=== PATIENT | female | born 1985 | race African-American/Black ===

== ENCOUNTER 2019-12-30 07:55 | Outpatient (CLI) | payer OTHER ==
[2019-12-30 09:09] VITALS: BP 112/72
--- NOTE | 2019-12-30 09:09 | SLEEP CARE CONSULTATION ---
Information from patient questionnaire entered by Peace Odell. I have reviewed and concur with the information entered by Peace Odell. This document represents the service I personally performed and the decisions made by me, Isabel Rudolph ARNP. History of Present Illness Service Date and Time: 12/30/2019 0755 Reason for Visit: New patient Chief Complaint: reports: Insomnia (can't get to sleep or stay sleep), Unrefreshed sleep, Snoring, Excessive daytime sleepiness, Observed pauses in breathing, Fatigue, Other (obstructed sleep patterns). denies: Frequent awakenings at night Date of Onset: 4-5 years Usual bedtime: 2200 Time it takes to fall asleep: 3 hours Snores at night: Yes Observed to quit breathing while asleep: Yes Sleeps alone due to snoring: No Number of times waking at night: 2-3 Reasons for waking at night: reports: Snoring, Gasping for air, Other (night terrors recently). denies: Choking, Pain, Bathroom Toss, Turn, or Twitch while sleeping: Yes Recalls having dreams: Yes Usually gets out of bed at: 0700 Feels refreshed in the morning: No Morning headache: Yes (daily, last about an hour without meds) Sleepy or fatigued during the day: Yes Ever fallen asleep while driving: Yes (drowsy driving, dozed off couple of times) Takes day naps: No Dreams during day naps: No Prior sleep studies: Yes Year and Where: [facility], [place] 2016; found to have insomnia Additional HPI information: I had the pleasure of seeing ERIC NAVARRETE today regarding the possibility of her having a sleep disorder. Her current complaints are insomnia, unrefreshed sleep, snoring, daily headaches, pauses in breathing during sleep, fatigue, and excessive daytime sleepiness. Patient has had previous HST and PSG test in 2016 in [place] which she states showed that she has insomnia. She has a history of not being able to get to sleep until 5-6 in the morning. About 3 weeks ago she started taking Mirtazepine which helps her get to sleep by about 1 AM. She feels her snoring and unrefreshed sleep is getting worse. She has gained weight, about 20 pounds, but she also states her weight has fluctuated. She states her mother is on CPAP therapy and her siblings all snore. - Parasomnia Symptoms Ever been unable to move upon waking from sleep: No Walks in sleep: No Talks in sleep: Yes Ever acted out dreams in sleep: Yes Ever felt weak in the knees when startled or emotional: No Bothered by creepy, crawly, restless sensations in legs: No Problems with memory or concentration: Yes (daily difficulty) Subjective Initial [place] Sleepiness Scale score: 1 Past Medical History Past Medical History: reports: Arthritis, Anxiety, Depression, GERD, Other (IBS, hip arthroscopy (bilateral), headaches). denies: Hypertension, Claustrophobia, Congestive Heart Failure, Diabetes, Stroke, Coronary Heart Disease, Insulin resistance, Arrythmia, Hypothyroidism, Anemia, Mood disorder Social History The patient's occupation is active . Patient is and lives in [place]. Have you smoked in the past 12 months: No Years of smokin Quit date: 2014 Alcohol use: No Caffeine use: No Family History Family history of sleep disordered breathing: No Family Hx Sleep Apnea: Mother: Snoring, Sleep apnea - Treated, Sibling: Snoring Allergies and Home Medications Drug allergies reviewed: Yes (NKDA) Home medication list reviewed: Yes Allergy and home medication list: Cymbalta 40 mg daily Mirtazapine 15 mg, nightly; last 3 weeks Review of Systems Weight gain over past 5 years: 20 Weight loss over past 5 years: 10 Cardiovascular: denies: high blood pressure, palpitations, chest pain, irregular heart rate or pulse, leg or foot swelling Respiratory: reports: wheeze. denies: shortness of breath, chronic cough Gastrointestinal: reports: heartburn, difficulty swallowing (has to prepare herself to swallow), abdominal pain Urinary: reports: urgency Neurological: reports: headaches, seizure, disorientation Psychiatric: reports: anxiety, depression. denies: mood disorder, claustrophobia Ear/Nose/Throat: reports: sinus problems (sinus infections several time), dry mouth/throat (daily, mornings mostly), injury to nose (nose fracture 2004), wisdom teeth removed. denies: nasal congestion, nose bleeds, hoarseness, tonsillectomy Endocrine: reports: excessive thirst, increased urination. denies: thyroid disease Musculoskeletal: reports: joint pain, neck pain, back pain Immunologic: denies: allergies to food or environment Physical Exam Blood Pressure: 112/72 Cuff size: regular Heart Rate: 84 O2 Saturation: 99 Height: 5 ft 10 in Weight: 187 lb 6.4 oz Body Mass Index: 26.9 BMI Classification: Overweight HEENT: No craniofacial malformation Nostrils: patent to airflow Turbinates: swollen Septum: midline Mouth and throat: narrow oropharynx Soft palate: normal Hard palate: arched Uvula: normal Uvula visualization: 25% Mallampati Class III Tongue: normal in size Tonsils: small Chin and jaw: normal size and position Neck: normal w/o lymphadenopathy or thyromegaly Heart: regular rate and rhythm Lungs: clear bilaterally Impression and Plan 1. Suspected Obstructive Sleep Apnea-Hypopnea Syndrome, as suggested by a history of loud and irregular snoring, observed cessation of breath while asleep, gasping or choking in sleep, morning headache, frequent awakening during the night, unrefreshed sleep, cognitive impairment, and excessive daytime sleepiness. She has had a previous study that she states showed insomnia but she feels her sleepiness, unrefreshed sleep, fatigue and insomnia are worse than when previously tested. I requested records from previous studies for comparison. I recommend proceeding to polysomnography to confirm the diagnosis and to assess severity. If the patient has significant sleep disordered breathing, a manual CPAP titration study will also be performed to find the optimal treatment pressure. Narrow oropharynx and obesity are common predisposing factors for obstructive sleep apnea-hypopnea syndrome. I informed the patient of what the sleep studies involve and after some discussion, obtained agreement to proceed. The pathophysiology of obstructive sleep apnea- hypopnea syndrome was discussed with the patient and health risks of cardiovascular and cerebrovascular disease if not treated. AAS brochure for obstructive sleep apnea-hypopnea syndrome given and reviewed. Risks of drowsy driving discussed in detail and patient advised to avoid long distance driving and to order puller at the first sign of drowsiness. Patient agreed to plan. AAS drowsy driving brochure given. * Schedule polysomnography +- manual CPAP titration study. * Obtain records from previous studies and bring to our office. * Avoid long distance driving or driving when feeling sleepy. * Avoid sedative and muscle relaxant around bedtime. * Attempt to lose weight. * Review instructions provided by trained office staff on how to prepare for the sleep study. * Return for follow-up after sleep study completed. Visit Type: In Office Time Spent with Patient (minutes): 30 Provider Statement: I spent 100% of the Face to Face Visit with the patient with greater than 50% spent counseling the patient and coordination of care.
== END 2019-12-30 07:56 | disposition home or self-care (01) ==
LOC: SC 07:55
PROVIDERS: ATTEND Nurse Practitioner Family
DX: R06.83 Snoring (principal); G47.10 Hypersomnia, unspecified; G47.8 Other sleep disorders; R06.81 Apnea, not elsewhere classified; F32.9 Major depressive disorder, single episode, unspecified; E66.3 Overweight; Z68.26 Body mass index [BMI] 26.0-26.9, adult
CPT/HCPCS: 99204; 99212

== ENCOUNTER 2020-01-20 19:33 | Outpatient (CLI) | payer OTHER | END 2020-01-20 19:34 | disposition home or self-care (01) | LOC: SC 19:33 | PROVIDERS: ATTEND Nurse Practitioner Family | DX: R06.83 Snoring (principal); G47.10 Hypersomnia, unspecified; G47.8 Other sleep disorders; R06.81 Apnea, not elsewhere classified; E66.3 Overweight; Z68.26 Body mass index [BMI] 26.0-26.9, adult | CPT/HCPCS: 95810 ==

== ENCOUNTER 2020-02-03 09:44 | Outpatient (CLI) | payer OTHER ==
--- NOTE | 2020-02-03 10:31 | SLEEP CARE CONSULTATION ---
Information from patient questionnaire entered by Kelly Gil. I have reviewed and concur with the information entered by Kelly Gil. This document represents the service I personally performed and the decisions made by , Isabel Rudolph ARNP. History of Present Illness Service Date and Time: 02/03/2020 0944 Initial [place] Sleepiness Scale score: 1 (in 2019) Current [place] Sleepiness Scale score: 10 Additional HPI information: ERIC NAVARRETE returns for follow up and results of the recently performed polysomnography. The patient was informed of the following findings: No significant sleep disordered breathing with an average AHI I explained the pathophysiology behind obstructive sleep apnea. Patient does not have sleep apnea and was advised how weight gain could increase the risk of developing sleep apnea in the future. Patient has moderate to loud snoring. Snoring can be reduced by weight loss. Weight loss is best achieved with diet consult. Patient instructed to contact PCP for referral. Snoring can also be treated with an oral appliance from a dentist. Advised to check insurance coverage. In addition, an ENT evaluation can be do to see if other treatment is indicated. Patient counseled not drink alcohol less than 4 hours before bedtime as it can increase snoring and apnea. Patient was cautioned about risks of drowsy driving until sleepiness symptoms resolve. Sleep Study - Results Type of Sleep Study: Polysomnography Polysomnography/Home Sleep Study results: IMPRESSION: The quality of the study is good. The patient had normal sleep efficiency. The sleep architecture was normal as well. Respiratory monitoring showed no significant sleep disordered breathing (AHI = 0.1) no significant hypoxia (tiara oxygen saturation of 94%). The patient slept adequately in supine position (supine AHI = 0.0; non-supine = 0.30). Snore was light to loud in intensity. There was no significant periodic leg movement of sleep. Cardiac rhythm was normal sinus rhythm without significant arrhythmia. No abnormal behavior (parasomnia) observed during the night. Allergies and Home Medications Drug allergies reviewed: Yes (NKDA) Home medication list reviewed: Yes (prazosin for depression added) Review of Systems Review of systems same as previous: Yes (no changes) Physical Exam Heart Rate: 79 O2 Saturation: 99 Height: 5 ft 10 in Weight: 197 lb Body Mass Index: 28.3 BMI Classification: Overweight Impression and Plan 1. Snoring but no significant sleep disordered breathing. Patient advised that often weight loss will reduce snoring as well as apnea risk. An oral appliance can also be used for snoring. This would require a dental consultation. Patient cautioned not to use other online appliances as can cause bite issues. A list of accredited dentists in area and one local dentist who makes oral appliances given. Patient is advised to check if insurance will cover. An ENT consult can also be helpful to determine if any other treatment is an option. 2. Insomnia, unspecified. Insomnia is generally caused by an irregular sleep schedule, spending too much time in bed, napping, caffiene, electronics, lack of a relaxing bedtime ritual and clock watching. Other factors can include anxiety/depression, pain, medications, and obstructive sleep apnea. Patient also has history of depression for which she is being treated with mirtazepine at bedtime and prazosin which may be contributing to her insomnia. She states she wakes up normally at 7 AM, even on the weekends. She has difficulty getting to sleep before 1 AM. I advised her to lay down to sleep around midnight instead of 2200. I counseled the patient on the importance of a regular sleep schedule, starting with the wake time. I explained the homestatic sleep drive and how maintaining a regular wake time will allow the patient to be tired enough to sleep 15-16 hours later. By waking at the same time, the patient will also feel more alert. This can also be assisted by exposure to bright light for a minimum of 15 minutes a day upon waking. Additionally too much time spent in bed can cause more sleep disruption as most people only need 7-9 hours of sleep. Thus patient advised to restrict time in bed to 7-8 hours. Naps are to be avoided unless overcome by sleepiness. Then naps are to be restricted to one hour and before 3 pm so as not to interfere with nighttime sleep. Most caffeine is to be stopped after lunch as it has a 6 hour half life and reduce sleep latency and efficiency. In addition, it is important to have a relaxing ritual about 30-60 minutes before bedtime to allow the mind/body transition from an active day to sleep. Electronics should be avoided 1-2 hours before bedtime as the bright light can reduce the endogenous melatonin and the activity of the computer, tablet, cell phone etc can be alerting. TV is okay but content needs to be relaxing and the brightness dimmed. A warm bath or shower is another way to assist transition to sleep. In addition, it is important to have a sleep environment conducive to sleep such as a comfortable bed, comfortable temperature and quiet. The alarm clock should be set and the face covered to prevent clock watching if awakened during the night. Knowing the time can cause anxiety and increase alertness and thinking about sleep time and preparation for the next day. Instead if awakened after sleep, the patient is to position for comfort or use bathroom and return to sleep. If unable to go to sleep in an estimated 20 minutes of more, it is advised to leave the bedroom and engage in a quiet activity until sleepy enough to return to bed. If unable to sleep due to things on the mind, it is recommended to write out the concerns or list to do as a release then return to a quiet activity until sleepy enough to return to bed. This is to be repeated as often as necessary to associate the bed with sleep and not frustration to get to sleep. AASM How to Sleep Better pamphlet given and reviewed at last visit. A sleep diary will be completed for the next 2 weeks to assist implementation of recommendations and for further evaluation of sleep concerns. * Keep a sleep diary for at least 2 weeks * Attempt to lose weight * Avoid alcohol consumption near bedtime * The patient is cautioned about driving until sleepiness is completely resolved. * Return in 1-2 months for follow up. Visit Type: In Office Location of Provider: Office Time Spent with Patient (minutes): 20 Provider Statement: I spent 100% of the Face to Face Visit with the patient with greater than 50% spent counseling the patient and coordination of care.
== END 2020-02-03 09:45 | disposition home or self-care (01) ==
LOC: SC 09:44
PROVIDERS: ATTEND Nurse Practitioner Family
DX: R06.83 Snoring (principal); G47.00 Insomnia, unspecified; E66.3 Overweight; Z68.28 Body mass index [BMI] 28.0-28.9, adult
CPT/HCPCS: 99212; 99213

== ENCOUNTER 2020-02-13 08:59 | Day surgery (SDC) | payer OTHER ==
[2020-02-13] MEDS ORDERED: LACTATED RINGERS 1,000 ML IV ONE ×2 (09:07→11:47)
--- NOTE | 2020-02-13 09:52 | ANESTHESIA ---
Pre-Anesthesia VS, & Labs - Diagnosis Endometrial Polyp - Procedure Myosure Hysteroscopy Vital Signs: Temp Pulse Resp BP Pulse Ox 36.1 C L 62 20 121/62 99 02/13/20 09:27 02/13/20 09:27 02/13/20 09:27 02/13/20 09:27 02/13/20 09:27 Height: 5 ft 8 in Weight (kg): 89 kg Body Mass Index: 29.8 BMI Classification: Overweight - NPO >8 hours - Is Patient ?: No Home Medications and Allergies Duloxetine HCl 40 mg PO BID 01/27/20 Ibuprofen [Motrin] 600 mg PO Q6H PRN 01/27/20 Mirtazapine 30 mg PO DAILY PM 01/27/20 Norethindrone AC-Eth Estradiol [Loestrin 21 1.5-30 Tablet] 1 each PO 01/27/20 Omeprazole Magnesium [Prilosec] 10 mg PO 01/27/20 Prazosin [Minipress] 2 mg PO QPM 01/27/20 Allergies/Adverse Reactions: Allergies Allergy/AdvReac Type Severity Reaction Status Date / Time No Known Drug Allergies Allergy Verified 01/27/20 14:09 Anes History & Medical History - Anesthetic History Anesthesia Complications: reports: No previous complications Family history of Anesthesia Complications: Denies Family history of Malignant Hyperthermia: Denies - Medical History Cardiovascular: reports: None Pulmonary: reports: None, Sleep apnea (Snores and will wake up choking. had sleep study, awaiting results) Gastrointestinal: reports: None, GERD (Controlled with prilosec) Urinary: reports: None Neuro: reports: Seizure disorder (Diagnosed as convulsive disorder with seizures. last one Mar 25. no meds. Last about 5 min.) Musculoskeletal: reports: None Endocrine/Autoimmune: reports: None Blood Disorders: reports: None Skin: reports: None - Surgical History General: Colonoscopy Orthopedic: Hip replacement Exam General: Alert, Oriented x3, Cooperative, No acute distress Dental: WNL Mouth Opening: Greater than 4 Fingerbreadths Neck Mobility: Normal Mallampati classification: I Thyromental Distance: 4-6 cm Respiratory: Lungs clear Cardiovascular: Regular rate Mental/Cognitive Status: Alert/Oriented X3 Plan Anesthesia Type: General Consent for Procedure(s) Verified and Reviewed: Yes Code Status: Attempt Resuscitation ASA classification: 2-Mild systemic disease Is this case an emergency?: No (Discussed anesthesia and risks. Consent signed.)
[2020-02-13 10:01] LABS: HCG UR QUAL NEGATIVE
[2020-02-13] MEDS ORDERED: HYDROmorphone 0.5 MG/0.5 ML SYRINGE IVP PRN (10:07)
[2020-02-13] MEDS ORDERED: ACETAMINOPHEN 1,000 MG/100 ML 100 ML IV ONE (10:07)
[2020-02-13] MEDS ORDERED: METOCLOPRAMIDE 10 MG/2 ML VIAL IVP PRN (10:07)
[2020-02-13] MEDS ORDERED: MORPHINE 2 MG/ML CARPUJECT IVP PRN (10:07)
[2020-02-13] MEDS ORDERED: NALOXONE 0.4 MG/ML VIAL IVP PRN (10:07)
[2020-02-13] MEDS ORDERED: ONDANSETRON 4 MG/2 ML VIAL IVP PRN (10:07)
[2020-02-13] MEDS ORDERED: ATROPINE ABBOJECT 1 MG/10 ML SYRINGE IVP PRN (10:07)
[2020-02-13] MEDS ORDERED: fentaNYL 100 MCG/2 ML VIAL IVP PRN (10:07)
[2020-02-13] MEDS ORDERED: ePHEDrine 50 MG/ML VIAL IVP PRN (10:07)
[2020-02-13] MEDS ORDERED: PROPOFOL 200 MG/20 ML VIAL IVP ONE (10:50)
[2020-02-13] MEDS ORDERED: MIDAZOLAM 2 MG/2 ML VIAL IVP ONE (10:50)
[2020-02-13] MEDS ORDERED: fentaNYL 100 MCG/2 ML VIAL IVP ONE (10:50)
[2020-02-13] MEDS ORDERED: LACTATED RINGERS 1,000 ML IV SCH (11:00)
[2020-02-13] MEDS ORDERED: LIDOCAINE 1% 50 ML MDV SUBQ ONE (11:37)
[2020-02-13] MEDS ORDERED: SILVER NITRATE APPLICATOR TOP ONE ×2 (11:38→12:43)
--- NOTE | 2020-02-13 11:50 | OPERATIVE REPORT ---
Operative Report - General Procedure Date: 02/13/20 Planned Procedure: Hysteroscopy with MyoSure Pre-Op Diagnosis: Endometrial polyp Procedure Performed: Same as above Post Op Diagnosis: Same as above - Procedure Note Primary Surgeon: Marcelina Anesthesia Provider: Herbert Anesthesia Technique: General LMA, Regional block Pathology: Endometrial polyp IV Fluids (mL): 1,000 Estimated Blood Loss (mL): 10 Indications: Endometrial polyp Findings: Exam under anesthesia The uterus was of normal size shape and consistency. The adnexa were benign. Operative findings The uterus sounded to 8 cm. The endometrium appeared thin and there was a small polyp on the posterior wall. Complications: None - Other Other Information/Narrative: The patient was taken to the operating room, where general anesthesia with LMA was administered without difficulty. She was then positioned in the high dorsal lithotomy position with her lower extremities in [place] stirrups. Exam under anesthesia was then performed with the findings as noted above. Vagina and perineum were then prepped and draped in a sterile fashion. Procedure Time- Out was then performed. A sterile bivalved speculum was then placed into the vagina, and the anterior lip of the cervix was grasped with a single-tooth tenaculum. 1% lidocaine was then injected at the 2:00, 4:00, 7:00, and 10:00 positions for a paracervical block. Serial dilation using Hegar dilators was then performed until the Myosure hysteroscope could be advanced. Using saline for distension, the cavity was visualized with the findings as note above. Myosure was used to perform a gentle curettage. The tenaculum was removed, and the tenaculum sites were made hemostatic with silver nitrate. The speculum was then removed from the vagina. At this point, the procedure was deemed completed. Sponge, lap, and needle count were correct x 3, and there were no complications. The patient was awakened, replaced supine, and transferred to the PACU in stable condition.
--- NOTE | 2020-02-13 12:13 | ANESTHESIA POST OP EVALUATION ---
Anesthesia Post Eval - Post Anesthesia Eval Vitals: Last Vital Signs Temp 36.5 C 02/13/20 12:02 Pulse 80 02/13/20 12:02 Resp 12 02/13/20 12:02 BP 121/80 02/13/20 12:02 Pulse Ox 100 02/13/20 12:02 CV Function Including HR & BP: positive: Stable Pain Control: positive: Satisfactory (Very mild cramping) Nausea & Vomiting: positive: Negative (Taking PO food and fluids) Mental Status: positive: Baseline Respiratory Status: Airway Patent Hydration Status: Satisfactory Anesthesia Complications: positive: None (awake and alert)
[2020-02-13 13:05] VITALS: BP 109/76
== END 2020-02-13 09:00 | disposition home or self-care (01) ==
LOC: SDS 08:59
PROVIDERS: ATTEND Obstetrics & Gynecology
PROC: 0UDB8ZZ Extraction of Endometrium, Via Natural or Artificial Opening Endoscopic (ICD-10-PCS; principal; 2020-02-13 10:15)
DX: N84.0 Polyp of corpus uteri (principal); N94.6 Dysmenorrhea, unspecified; F17.290 Nicotine dependence, other tobacco product, uncomplicated; G47.30 Sleep apnea, unspecified
CPT/HCPCS: 81025

== ENCOUNTER 2020-03-05 09:36 | Outpatient (CLI) | payer OTHER ==
--- NOTE | 2020-03-05 10:28 | SLEEP CARE CONSULTATION ---
Information from patient questionnaire entered by Kelly Gil. I have reviewed and concur with the information entered by Kelly Gil. This document represents the service I personally performed and the decisions made by me, Isabel Rudolph ARNP. History of Present Illness Service Date and Time: 03/05/2020 0936 Reason for follow up: one month (with sleep diaries) Prior sleep studies: Yes Year and Where: 2016 - [place], [place] (insomnia), 2019 - [facility] Type of Sleep Study: Polysomnography HPI additional information: I had the pleasure of seeing ERIC NAVARRETE today for follow up of her insomnia complaint. She takes 20 minutes to 1.5 hours to go to sleep. She gets out of bed between 0530 to 1000 in the morning and goes to bed between 0030 and 0200 AM. She feels better when she has about 6 hours of sleep than if she sleeps more than 8 hours. She does not take naps. She is just going back to work and will have a more consistent get up time now. She is taking mirtazepine 3 mg nightly to help her sleep. Subjective Initial [place] Sleepiness Scale score: 1 (in 2019) Allergies and Home Medications Drug allergies reviewed: Yes (NKDA) Home medication list reviewed: Yes Allergy and home medication list: Linzess 145 mg daily for IBS Prazosin 2 mg daily for nightmares Review of Systems Review of systems same as previous: No (hysteroscopy 2 weeks ago) Physical Exam Heart Rate: 84 O2 Saturation: 98 Height: 5 ft 10 in Weight: 196 lb Body Mass Index: 28.1 BMI Classification: Overweight Impression and Plan 1. Insomnia, unspecified. Insomnia is generally caused by an irregular sleep schedule, spending too much time in bed, napping, caffiene, electronics, lack of a relaxing bedtime ritual and clock watching. Other factors can include anxiety/depression, pain, medications, and obstructive sleep apnea. First I counseled the patient on the importance of a regular sleep schedule, starting with the wake time. I explained the homestatic sleep drive and how maintaining a regular wake time will allow the patient to be tired enough to sleep 15-16 hours later. By waking at the same time, the patient will also feel more alert. This can also be assisted by exposure to bright light for a minimum of 15 minutes a day upon waking. Additionally too much time spent in bed can cause more sleep disruption as most people only need 7-9 hours of sleep. Thus patient advised to restrict time in bed to 7-8 hours. Naps are to be avoided unless overcome by sleepiness. Then naps are to be restricted to one hour and before 3 pm so as not to interfere with nighttime sleep. Most caffeine is to be stopped after lunch as it has a 6 hour half life and reduce sleep latency and efficiency. In addition, it is important to have a relaxing ritual about 30-60 minutes before bedtime to allow the mind/body transition from an active day to sleep. Electronics should be avoided 1-2 hours before bedtime as the bright light can reduce the endogenous melatonin and the activity of the computer, tablet, cell phone etc can be alerting. TV is okay but content needs to be relaxing and the brightness dimmed. A warm bath or shower is another way to assist transition to sleep. In addition, it is important to have a sleep environment conducive to sleep such as a comfortable bed, comfortable temperature and quiet. The alarm clock should be set and the face covered to prevent clock watching if awakened during the night. Knowing the time can cause anxiety and increase alertness and thinking about sleep time and preparation for the next day. Instead if awakened after sleep, the patient is to position for comfort or use bathroom and return to sleep. If unable to go to sleep in an estimated 20 minutes of more, it is advised to leave the bedroom and engage in a quiet activity until sleepy enough to return to bed. If unable to sleep due to things on the mind, it is recommended to write out the concerns or list to do as a release then return to a quiet activity until sleepy enough to return to bed. This is to be repeated as often as necessary to associate the bed with sleep and not frustration to get to sleep. A sleep diary will be completed for the next 2 weeks to assist implementation of recommendations and for further evaluation of sleep concerns. * Get up at same time every morning, no more than an hour difference * Work on nightly routine to encourage sleepiness for bedtime * Do not stay in bed if not sleepy, return when sleepy * Avoid caffeine after lunch or nicotine before bedtime. * Return in 3 months for follow up. Visit Type: In Office Time Spent with Patient (minutes): 22 Provider Statement: I spent 100% of the Face to Face Visit with the patient with greater than 50% spent counseling the patient and coordination of care.
== END 2020-03-05 09:37 | disposition home or self-care (01) ==
LOC: SC 09:36
PROVIDERS: ATTEND Nurse Practitioner Family
DX: G47.00 Insomnia, unspecified (principal)
CPT/HCPCS: 99212

== ENCOUNTER 2020-06-01 09:46 | Outpatient (CLI) | payer OTHER ==
--- NOTE | 2020-06-01 10:24 | SLEEP CARE CONSULTATION ---
Information from patient questionnaire entered by Kelly Gil. I have reviewed and concur with the information entered by Kelly Gil. This document represents the service I personally performed and the decisions made by me, Isabel Rudolph ARNP. History of Present Illness Service Date and Time: 06/01/2020 0946 Reason for follow up: three month, other (insomnia) Prior sleep studies: Yes Year and Where: 2015 - [place], [place] (insomnia), 2019 - [facility] Type of Sleep Study: Polysomnography HPI additional information: BAMBI NAVARRETE with insomnia returned today for 3 month follow-up. She has been getting up at 0730 in the morning on days she works, about 9 am on days she is off. She normally goes to bed about 1130 PM. She is getting about 7 hours in bed. She is still waking up about 3 times a night on average. She fees this is due to stress and anxiety about finances, etc. She does feel she is getting tired enough to fall asleep quickly when she goes to bed now since she has been working again and getting up at the same time every morning. She does wake up and have worries that cause her to ruminate on ideas during the night a few times still. But, overall she feels she is sleeping better than when she first came to this office. Subjective Initial [place] Sleepiness Scale score: 1 (in 2019) Current [place] Sleepiness Scale score: 12 Allergies and Home Medications Drug allergies reviewed: Yes (NKDA) Home medication list reviewed: Yes (no changes) Review of Systems Review of systems same as previous: Yes (no changes) Physical Exam Heart Rate: 91 O2 Saturation: 98 Height: 5 ft 8 in Weight: 195 lb Body Mass Index: 29.6 BMI Classification: Overweight Impression and Plan 1. Insomnia, unspecified. Insomnia is generally caused by an irregular sleep schedule, spending too much time in bed, napping, caffiene, electronics, lack of a relaxing bedtime ritual and clock watching. Other factors can include anxiety/depression, pain, medications, and obstructive sleep apnea. Bambi has been trying to keep to a regular get up time on work days with only sleeping in to 9 AM on the weekends. She is able to fall asleep more quickly with the consistent get up time. She has stopped looking at her phone at night 2 hours prior to bedtime because this would cause her to stay up longer. She is now consistently going to sleep about 1130 PM. I told her this was a good change because electronics should be avoided 1-2 hours before bedtime as the bright light can reduce the endogenous melatonin and the activity of the computer, tablet, cell phone etc can be alerting. TV is okay but content needs to be relaxing and the brightness dimmed. For her stress/anxiety that is interrupting her sleep I advised her to set aside a 30 minute time period that she can focus on her stressors and write them down which can signal to her subconscious that she has dealt with them and allow her to sleep better. If unable to sleep due to things on the mind, it is recommended to write out the concerns or list to do as a release then return to a quiet activity until sleepy enough to return to bed. This is to be repeated as often as necessary to associate the bed with sleep and not frustration to get to sleep. She voiced understanding and agreement with plan. Patient is seeing some improvement with her sleep and restfulness during the day. She is not nodding off as often due to being busy at work. She is to move in about 2 months. She would like to follow up as needed and continue with the plan of care we have reviewed. She can follow up as needed. * Continue to stick to same get up time in the morning * Set aside time daily to think and write out stressors/anxieties prior to bedtime * Avoid alcohol consumption near bedtime * The patient is cautioned about driving until sleepiness is completely resolved. * Return as needed. Visit Type: In Office Time Spent with Patient (minutes): 28 Provider Statement: I spent 100% of the Face to Face Visit with the patient with greater than 50% spent counseling the patient and coordination of care.
== END 2020-06-01 09:47 | disposition home or self-care (01) ==
LOC: SC 09:46
PROVIDERS: ATTEND Nurse Practitioner Family
DX: G47.00 Insomnia, unspecified (principal); F41.9 Anxiety disorder, unspecified; F43.8 Other reactions to severe stress; E66.3 Overweight; Z68.29 Body mass index [BMI] 29.0-29.9, adult
CPT/HCPCS: 99212